=== PATIENT | female | born 1995 | race Caucasian/White ===

== ENCOUNTER 2016-05-23 16:03 | Emergency (ER) | payer OTHER ==
--- NOTE | 2016-05-23 19:44 | ED CLINICAL REPORT ---
Clinical Report - Physicians/Mid Levels [facility] [address] [place] [address] 05/23/2016 16:05 Patient: LAN LAMAR Time Seen: 18:00. Arrived- By private vehicle. Historian- patient. HISTORY OF PRESENT ILLNESS Chief Complaint: ABDOMINAL PAIN. It is described as located in the right lower quadrant. This started about 7 days ago, similar x 6 months and is still present (worse). It was gradual in onset and has been waxing/waning. At its maximum, severity described as moderate. When seen in the E.D., severity described as moderate. Modifying factors- worsened by walking, cough and deep breaths. (better with heat). The patient has had nausea. No vomiting or diarrhea. (IUD 6 mos). Similar symptoms previously: Several times. REVIEW OF SYSTEMS Last normal menstrual period- 4 weeks ago. Sexual history - sexually active. Uses an intrauterine device. No constipation, black stools, difficulty with urination, urinary frequency or fever. No headache, sore throat, blurred vision, chest pain or difficulty breathing. No joint pain, chills or back pain. The patient has had pain on urination. Last bowel movement: yesterday. 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 SOCIAL HISTORY The patient lives with spouse. ADDITIONAL NOTES The nursing notes have been reviewed. PHYSICAL EXAM Vital Signs: 05/23/2016 20:11 BP: 91/54. HR: 88. RR: 16. O2 saturation: 100%. Temp: 98.2 F. Pain level now: 07/01. 05/23/2016 18:58 BP: 93/68. HR: 70. RR: 16. O2 saturation: 97%. Temp: 97.7 F. 05/23/2016 17:21 BP: 121/67. HR: 83. RR: 18. O2 saturation: 100%. Temp: 98.4 F. Appearance: Alert. Patient in mild distress. Eyes: Pupils equal, round and reactive to light. ENT: Pharynx normal. Neck: Normal inspection. Neck supple. CVS: Normal heart rate and rhythm. Heart sounds normal. Respiratory: No respiratory distress. Breath sounds normal. Abdomen: Moderate tenderness in the right lower quadrant. Bowel sounds normal. No rebound tenderness or guarding. (No hernias). Back: No CVA tenderness. : No vaginal bleeding. Moderate right adnexal tenderness; uterine tenderness; left adnexal tenderness (IUD string in place). No right adnexal fullness. No left adnexal fullness. Uterus not enlarged. Skin: Skin warm. Normal skin color. Extremities: Extremities exhibit normal ROM. No lower extremity edema. LABS, X-RAYS, AND EKG Laboratory Tests: UA-Culture if indicated: (DENICE: 05/23/2016 17:25) ( [facility] [place]) Final results Test Result Flag Units (Reference) URINE COLOR YELLOW URINE APPEARANCE CLEAR URINE GLUCOSE NEGATIVE (NEGATIVE) URINE BILIRUBIN NEGATIVE (NEGATIVE) URINE KETONE TRACE (NEGATIVE) URINE SPECIFIC GRAVITY 1.020 (1.010-1.030) URINE PH 8.0 (5.0-8.0) URINE PROTEIN NEGATIVE (NEGATIVE) URINE UROBILINOGEN 0.2 EU/dL (0.2-1.0) URINE NITRITE NEGATIVE (NEGATIVE) URINE BLOOD TRACE-INTACT (NEGATIVE) URINE LEUK ESTERASE NEGATIVE (NEGATIVE) URINE RBC 0-1 rbc/hpf (0-1) URINE WBC 0-1 wbc/hpf (0-1) URINE EPITHELIAL CELLS 1-3 EPI/hpf (0-5) URINE BACTERIA TRACE (<1+) (NONE SEEN) URINE COMMENT CULT NOT INDICATED 1+ AMORPHOUSURINE CULTURES ARE SET-UP BASED ON THE FOLLOWING CRITERIA:POSITIVE NITRITEPOSITIVE LEUKOCYTE ESTERASEGREATER THAN 10 WHITE BLOOD CELLSMODERATE (2+) OR GREATER BACTERIA Urine: (DENICE: 05/23/2016 17:25) ( [facility] [place] 18:00) Final results Test Result Flag Units (Reference) URINE NEGATIVE CBC w Diff: (DENICE: 05/23/2016 18:00) ( MsgRcvd 05/23/2016 18:20) Final results Test Result Flag Units (Reference) WHITE BLOOD COUNT 7.2 K/uL (4.5-11.5) RED BLOOD COUNT 4.42 M/uL (4.00-5.20) HEMOGLOBIN 14.0 gm/dL (12.0-16.0) HEMATOCRIT 42.0 % (36.0-46.0) MEAN CELL VOLUME 95 fL (80-100) MEAN CORPUSCULAR HGB 32 pg (26-34) MEAN CORPUSCULAR HGB CONC 33 g/dL (31-37) RED CELL DISTRIBUTION WIDTH 12.3 % (11.6-14.8) PLATELET COUNT 173 K/uL (150-400) NEUTROPHIL % 78.5 H % (50-75) LYMPH % 10.9 L % (25-40) MONO % 9.4 % (3-14) EOSINOPHIL % 0.8 % (0-4) BASOPHIL % 0.4 % (0-2) CMP: (DENICE: 05/23/2016 18:00) ( MsgRcvd 05/23/2016 18:34) Final results Test Result Flag Units (Reference) GLUCOSE 90 mg/dL (70-110) BUN 12 mg/dL (7-18) CREATININE 0.8 mg/dL (0.6-1.3) Estimated GFR >60 mL/min Estimated GFR- >60 mL/min Note: Persistent reduction over 3 months in eGFR<60 mL/min/1.73 m2 defines CKD. Patients with eGFR values>=60 mL/min/1.73 m2 may also have CKD if evidence ofpersistent proteinuria. Additional information may be foundat www.kidney.org. SODIUM 140 mmol/L (136-145) POTASSIUM 4.1 mmol/L (3.5-5.1) CHLORIDE 105 mmol/L (98-107) CARBON DIOXIDE 31 mmol/L (21-32) CALCIUM 8.4 L mg/dL (8.5-10.1) TOTAL PROTEIN 7.0 g/dL (6.4-8.2) ALBUMIN 3.9 g/dL (3.3-5.0) BILIRUBIN, TOTAL 1.9 H mg/dL (0.0-1.0) ALKALINE PHOSPHATASE 70 U/L (46-116) AST (SGOT) 9 L U/L (15-37) ALT (SGPT) 24 U/L (12-78) . PROGRESS AND PROCEDURES Course of Care: Bimanual tenderness suggest the possibilty of PID will treat as such pending cultures. Does not look like appendicitis. Disposition: Discharged. Condition: stable. CLINICAL IMPRESSION Pelvic pain. Probable acute pelvic inflammatory disease. INSTRUCTIONS (THIS MAY BE A PELVIC INFECTION OR ENDOMITRIOSIS. YOU NEED TO SEE A FAMILY OR RELIGIOUS LEADER DR.). Prescription Medications: Hydrocodone/APAP 5mg / 325mg: take 1-2 orally every 4 hours as needed for pain. Dispense fifteen (15). Doxycycline 100 mg: Take 1 capsule orally every 12 hours for 10 days. No refill. Understanding of the discharge instructions verbalized by patient and family. Follow-up with: Steven Mora MD, Obstetrics/Gynecology, , [facility], [address] [place] [address] Follow up. Call for the next available appointment. Reason for referral: PELVIC PAIN FOLLOW UP. (Electronically signed by Feliciano Feliz MD 05/24/2016 19:46)
--- NOTE | 2016-05-23 19:44 | ED ORDER SUMMARY ---
..... Patient: LAN LAMAR OrderSheet [facility] VisitID: [id number] [place] [address] 20y, F Registration Date/Time: 05/23/2016 ORDER SHEET Weight: 47.6 kg (stated) Allergies: No Known Drug Allergy GENERAL ORDERS: UA-Culture if indicated Urgent (17:26 05/23/2016 SBalde R.N. per protocol) (Ack 17:28 IJurca ER Tech1) (18:06 SBalde R.N.) Urine Urgent (17:26 05/23/2016 SBalde R.N. per protocol) (Ack 17:28 IJurca ER Tech1) (18:06 SBalde R.N.) CBC w Diff Urgent (17:59 05/23/2016 Nikki COX) (Ack 18:03 IJurca ER Tech1) (18:16 MWinterer R.N.) CMP Urgent (17:59 05/23/2016 Nikki COX) (Ack 18:03 IJurca ER Tech1) (18:16 MWinterer R.N.) Pelvic Exam Setup (19:20 05/23/2016 Nikki COX) (19:40 HOShaughnessy R.N.) GC/Chlamydia (Cervix) (swab) Urgent (19:21 05/23/2016 Nikki COX) (Ack 19:29 LTapper) (19:40 HOShaughnessy R.N.) MEDICATION ORDERS: Percocet PO 1 tab (NOW) (19:40 05/23/2016 Nikki COX) (19:58 HOShaughnessy R.N.) IV FLUIDS: IV Saline Lock (17:59 05/23/2016 Nikki COX) (Ack 18:06 SBalde R.N.) (18:22 MWinterer R.N.) Ceftriaxone IV 250 mg/50mL (NOW) (19:39 05/23/2016 Nikki COX) (19:57 HOShaughnessy R.N.) ORDER SHEET NOTES: [Electronically signed by John Renteria R.N. (20:19 05/23/2016)] [Electronically signed by John Renteria R.N. (20:19 05/23/2016)] [Electronically signed by Feliciano Feliz MD (19:46 05/24/2016)] [Electronically locked/signed by John Renteria R.N. (20:19 05/23/2016)]
--- NOTE | 2016-05-23 19:44 | ED NURSING NOTES ---
Clinical Report - Nurses [facility] [address] [place] [address] 05/23/2016 16:05 Patient: LAN LAMAR TRIAGE Triage time 17:21 May 23 2016. Acuity: LEVEL 3. Chief Complaint: ABDOMINAL PAIN. Alert. No acute distress. --17:25 Lalita Mayorga R.N. 17:21 05/23/16. BP: 121/67. HR: 83. RR: 18. O2 saturation: 100%. Temp: 98.4 F. Pain level now 7/10. --17: Lalita Mayorga R.N. Weight: 47.6 kg stated. Height/Length: 62 inches Per Patient. BMI: 19.2. --17:21 Lalita Mayorga R.N. Medications None. --17: Lalita Mayorga R.N. Allergies No Known Drug Allergy. --17: Lalita Mayorga R.N. History Arrived by private vehicle. Historian: patient. Primary physician (none). ( Left Side Pain, started 1 week ago. Intermittent. Sharp.). Onset. (1 week). 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 PAST MEDICAL HX: Uses an intrauterine device. Denies current . Has not received seasonal influenza immunization. SOCIAL HX: Smoker- current status unknown (cigarette). Occasional alcohol use. History of drug use: marijuana. NUTRITIONAL RISK ASSESSMENT: The nutritional risk assessment revealed no deficiencies. FUNCTIONAL ASSESSMENT: Functional assessment: no impairments noted. LEARNING NEEDS ASSESSMENT: The learning needs assessment revealed no barriers. SKIN INTEGRITY ASSESSMENT: Skin integrity risk assessment completed. No skin integrity risk identified. --17:25 Lalita Mayorga R.N. PROBLEMS: UTI - Urinary Tract Infection. Dysfunctional Uterine Bleeding. Immunizations. LNMP - Last Normal Menstrual Period. --17:23 Lalita Mayorga R.N. Pelvic Inflammatory Disease [RuleOut]. --17:23 Lalita Mayorga R.N. Interventions ID band on patient. --17:25 Lalita Mayorga R.N. NURSING PROGRESS NOTES ( attempting a urine sample). --17:26 Lalita Mayorga R.N. Clean catch urine collected with return of yellow-colored clear urine; sample sent to lab for urinalysis and HCG. Specimen labeled in the presence of the patient. --17:29 Lalita Mayorga R.N. Patient ID band checked: patient confirmed. Blood samples drawn by nurse per protocol ; labeled in presence of the patient: rainbow set. ( Dr. Feliz has seen pt in the [facility]. Blood drawn by ELADIO Mancini and sent to lab. Pt has returned to the [facility].). --18:08 Lalita Mayorga R.N. 18:22 05/23/2016 Site #1 started via IV in the left antecubital space with an 20g angiocath, with aseptic technique and good blood return; one attempt. Saline lock flushed with 10 mL saline. --18:22 Audrey Ellis R.N. 18:58 05/23/16. BP: 93/68. HR: 70. RR: 16. O2 saturation: 97%. Temp: 97.7 F. --18:59 John Renteria R.N. The patient is calm. Overall patient status is the same- she states feels the same. --18:59 John Renteria R.N. 19:57 05/23/2016 Started 250 mg of Ceftriaxone IVPB; over 30 minute(s) via site #1 via IV pump. Allergies verified and confirmed 5 rights. IV patency established. IV site checked: no pain, redness, or swelling. IV flushed thoroughly pre- and post-medication administration. --19:57 John Renteria R.N. 19:58 05/23/2016 Percocet (Oxycodone-Acetaminophen) PO 5/325 mg Tablets 1 tab given. Allergies verified, confirmed 5 rights and sedative warning given to the patient. --19:58 John Renteria R.N. DISPOSITION / DISCHARGE Condition at departure: improved. The goals identified in the patient's plan of care were met. No learning barriers present. Discharge instructions provided and reviewed with the patient. Reviewed medication(s) side effects, precautions, dosing and course information. Prescription(s) given to the patient. Reviewed need for increased fluid intake. Work note given. Patient verbalized understanding. Written instructions provided in Ukrainian. The patient was discharged home and accompanied by spouse. She left the Emergency Department ambulatory and via private vehicle. Spouse driving. FALL RISK ASSESSMENT: Fall risk assessment completed. No fall risk identified. --20:12 John Renteria R.N. 20:11 05/23/16. BP: 91/54. HR: 88. RR: 16. O2 saturation: 100%. Temp: 98.2 F. Pain level now: 07/01. --20:12 John Renteria R.N. Departure time: 2017 PM. --20:19 John Renteria R.N. Locked/Released at 05/23/2016 20:19 by John Renteria R.N.
--- NOTE | 2016-05-23 19:44 | ED CLINICAL REPORT ---
Clinical Report - Physicians/Mid Levels [facility] [address] [place] [address] 05/23/2016 16:05 Patient: LAN LAMAR Time Seen: 18:00. Arrived- By private vehicle. Historian- patient. HISTORY OF PRESENT ILLNESS Chief Complaint: ABDOMINAL PAIN. It is described as located in the right lower quadrant. This started about 7 days ago, similar x 6 months and is still present (worse). It was gradual in onset and has been waxing/waning. At its maximum, severity described as moderate. When seen in the E.D., severity described as moderate. Modifying factors- worsened by walking, cough and deep breaths. (better with heat). The patient has had nausea. No vomiting or diarrhea. (IUD 6 mos). Similar symptoms previously: Several times. REVIEW OF SYSTEMS Last normal menstrual period- 4 weeks ago. Sexual history - sexually active. Uses an intrauterine device. No constipation, black stools, difficulty with urination, urinary frequency or fever. No headache, sore throat, blurred vision, chest pain or difficulty breathing. No joint pain, chills or back pain. The patient has had pain on urination. Last bowel movement: yesterday. 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 SOCIAL HISTORY The patient lives with spouse. ADDITIONAL NOTES The nursing notes have been reviewed. PHYSICAL EXAM Vital Signs: 05/23/2016 20:11 BP: 91/54. HR: 88. RR: 16. O2 saturation: 100%. Temp: 98.2 F. Pain level now: 07/01. 05/23/2016 18:58 BP: 93/68. HR: 70. RR: 16. O2 saturation: 97%. Temp: 97.7 F. 05/23/2016 17:21 BP: 121/67. HR: 83. RR: 18. O2 saturation: 100%. Temp: 98.4 F. Appearance: Alert. Patient in mild distress. Eyes: Pupils equal, round and reactive to light. ENT: Pharynx normal. Neck: Normal inspection. Neck supple. CVS: Normal heart rate and rhythm. Heart sounds normal. Respiratory: No respiratory distress. Breath sounds normal. Abdomen: Moderate tenderness in the right lower quadrant. Bowel sounds normal. No rebound tenderness or guarding. (No hernias). Back: No CVA tenderness. : No vaginal bleeding. Moderate right adnexal tenderness; uterine tenderness; left adnexal tenderness (IUD string in place). No right adnexal fullness. No left adnexal fullness. Uterus not enlarged. Skin: Skin warm. Normal skin color. Extremities: Extremities exhibit normal ROM. No lower extremity edema. LABS, X-RAYS, AND EKG Laboratory Tests: UA-Culture if indicated: (DENICE: 05/23/2016 17:25) ( [facility] [place] 18:08) Final results Test Result Flag Units (Reference) URINE COLOR YELLOW URINE APPEARANCE CLEAR URINE GLUCOSE NEGATIVE (NEGATIVE) URINE BILIRUBIN NEGATIVE (NEGATIVE) URINE KETONE TRACE (NEGATIVE) URINE SPECIFIC GRAVITY 1.020 (1.010-1.030) URINE PH 8.0 (5.0-8.0) URINE PROTEIN NEGATIVE (NEGATIVE) URINE UROBILINOGEN 0.2 EU/dL (0.2-1.0) URINE NITRITE NEGATIVE (NEGATIVE) URINE BLOOD TRACE-INTACT (NEGATIVE) URINE LEUK ESTERASE NEGATIVE (NEGATIVE) URINE RBC 0-1 rbc/hpf (0-1) URINE WBC 0-1 wbc/hpf (0-1) URINE EPITHELIAL CELLS 1-3 EPI/hpf (0-5) URINE BACTERIA TRACE (<1+) (NONE SEEN) URINE COMMENT CULT NOT INDICATED 1+ AMORPHOUSURINE CULTURES ARE SET-UP BASED ON THE FOLLOWING CRITERIA:POSITIVE NITRITEPOSITIVE LEUKOCYTE ESTERASEGREATER THAN 10 WHITE BLOOD CELLSMODERATE (2+) OR GREATER BACTERIA Urine: (DENICE: 05/23/2016 17:25) ( [facility] [place] 18:00) Final results Test Result Flag Units (Reference) URINE NEGATIVE CBC w Diff: (DENICE: 05/23/2016 18:00) ( MsgRcvd 05/23/2016 18:20) Final results Test Result Flag Units (Reference) WHITE BLOOD COUNT 7.2 K/uL (4.5-11.5) RED BLOOD COUNT 4.42 M/uL (4.00-5.20) HEMOGLOBIN 14.0 gm/dL (12.0-16.0) HEMATOCRIT 42.0 % (36.0-46.0) MEAN CELL VOLUME 95 fL (80-100) MEAN CORPUSCULAR HGB 32 pg (26-34) MEAN CORPUSCULAR HGB CONC 33 g/dL (31-37) RED CELL DISTRIBUTION WIDTH 12.3 % (11.6-14.8) PLATELET COUNT 173 K/uL (150-400) NEUTROPHIL % 78.5 H % (50-75) LYMPH % 10.9 L % (25-40) MONO % 9.4 % (3-14) EOSINOPHIL % 0.8 % (0-4) BASOPHIL % 0.4 % (0-2) CMP: (DENICE: 05/23/2016 18:00) ( MsgRcvd 05/23/2016 18:34) Final results Test Result Flag Units (Reference) GLUCOSE 90 mg/dL (70-110) BUN 12 mg/dL (7-18) CREATININE 0.8 mg/dL (0.6-1.3) Estimated GFR >60 mL/min Estimated GFR- >60 mL/min Note: Persistent reduction over 3 months in eGFR<60 mL/min/1.73 m2 defines CKD. Patients with eGFR values>=60 mL/min/1.73 m2 may also have CKD if evidence ofpersistent proteinuria. Additional information may be foundat www.kidney.org. SODIUM 140 mmol/L (136-145) POTASSIUM 4.1 mmol/L (3.5-5.1) CHLORIDE 105 mmol/L (98-107) CARBON DIOXIDE 31 mmol/L (21-32) CALCIUM 8.4 L mg/dL (8.5-10.1) TOTAL PROTEIN 7.0 g/dL (6.4-8.2) ALBUMIN 3.9 g/dL (3.3-5.0) BILIRUBIN, TOTAL 1.9 H mg/dL (0.0-1.0) ALKALINE PHOSPHATASE 70 U/L (46-116) AST (SGOT) 9 L U/L (15-37) ALT (SGPT) 24 U/L (12-78) . PROGRESS AND PROCEDURES Course of Care: Bimanual tenderness suggest the possibilty of PID will treat as such pending cultures. Does not look like appendicitis. Disposition: Discharged. Condition: stable. CLINICAL IMPRESSION Pelvic pain. Probable acute pelvic inflammatory disease. INSTRUCTIONS (THIS MAY BE A PELVIC INFECTION OR ENDOMITRIOSIS. YOU NEED TO SEE A FAMILY OR DOPSTER DR.). Prescription Medications: Hydrocodone/APAP 5mg / 325mg: take 1-2 orally every 4 hours as needed for pain. Dispense fifteen (15). Doxycycline 100 mg: Take 1 capsule orally every 12 hours for 10 days. No refill. Understanding of the discharge instructions verbalized by patient and family. Follow-up with: Steven Mora MD, Obstetrics/Gynecology, , [facility], [address] [place] [address] Follow up. Call for the next available appointment. Reason for referral: PELVIC PAIN FOLLOW UP. (Electronically signed by Feliciano Feliz MD 05/24/2016 19:46)
--- NOTE | 2016-05-23 19:44 | ED ORDER SUMMARY ---
..... Patient: LAN LAMAR OrderSheet [facility] VisitID: [id number] [place] [address] 20y, F Registration Date/Time: 05/23/2016 ORDER SHEET Weight: 47.6 kg (stated) Allergies: No Known Drug Allergy GENERAL ORDERS: UA-Culture if indicated Urgent (17:26 05/23/2016 SBalde R.N. per protocol) (Ack 17:28 IJurca ER Tech1) (18:06 SBalde R.N.) Urine Urgent (17:26 05/23/2016 SBalde R.N. per protocol) (Ack 17:28 IJurca ER Tech1) (18:06 SBalde R.N.) CBC w Diff Urgent (17:59 05/23/2016 Nikki COX) (Ack 18:03 IJurca ER Tech1) (18:16 MWinterer R.N.) CMP Urgent (17:59 05/23/2016 Nikki COX) (Ack 18:03 IJurca ER Tech1) (18:16 MWinterer R.N.) Pelvic Exam Setup (19:20 05/23/2016 Nikki COX) (19:40 HOShaughnessy R.N.) GC/Chlamydia (Cervix) (swab) Urgent (19:21 05/23/2016 Nikki COX) (Ack 19:29 LTapper) (19:40 HOShaughnessy R.N.) MEDICATION ORDERS: Percocet PO 1 tab (NOW) (19:40 05/23/2016 Nikki COX) (19:58 HOShaughnessy R.N.) IV FLUIDS: IV Saline Lock (17:59 05/23/2016 Nikki COX) (Ack 18:06 SBalde R.N.) (18:22 MWinterer R.N.) Ceftriaxone IV 250 mg/50mL (NOW) (19:39 05/23/2016 Nikki COX) (19:57 HOShaughnessy R.N.) ORDER SHEET NOTES: [Electronically signed by John Renteria R.N. (20:19 05/23/2016)] [Electronically signed by John Renteria R.N. (20:19 05/23/2016)] [Electronically signed by Feliciano Feliz MD (19:46 05/24/2016)] [Electronically locked/signed by John Renteria R.N. (20:19 05/23/2016)]
--- NOTE | 2016-05-23 19:44 | ED NURSING NOTES ---
Clinical Report - Nurses [facility] [address] [place] [address] 05/23/2016 16:05 Patient: LAN LAMAR TRIAGE Triage time 17:21 May 23 2016. Acuity: LEVEL 3. Chief Complaint: ABDOMINAL PAIN. Alert. No acute distress. --17:25 Lalita Mayorga R.N. 17:21 05/23/16. BP: 121/67. HR: 83. RR: 18. O2 saturation: 100%. Temp: 98.4 F. Pain level now 7/10. --17: Lalita Mayorga R.N. Weight: 47.6 kg stated. Height/Length: 62 inches Per Patient. BMI: 19.2. --17:21 Lalita Mayorga R.N. Medications None. --17: Lalita Mayorga R.N. Allergies No Known Drug Allergy. --17: Lalita Mayorga R.N. History Arrived by private vehicle. Historian: patient. Primary physician (none). ( Left Side Pain, started 1 week ago. Intermittent. Sharp.). Onset. (1 week). 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 PAST MEDICAL HX: Uses an intrauterine device. Denies current . Has not received seasonal influenza immunization. SOCIAL HX: Smoker- current status unknown (cigarette). Occasional alcohol use. History of drug use: marijuana. NUTRITIONAL RISK ASSESSMENT: The nutritional risk assessment revealed no deficiencies. FUNCTIONAL ASSESSMENT: Functional assessment: no impairments noted. LEARNING NEEDS ASSESSMENT: The learning needs assessment revealed no barriers. SKIN INTEGRITY ASSESSMENT: Skin integrity risk assessment completed. No skin integrity risk identified. --17:25 Lalita Mayorga R.N. PROBLEMS: UTI - Urinary Tract Infection. Dysfunctional Uterine Bleeding. Immunizations. LNMP - Last Normal Menstrual Period. --17:23 Lalita Mayorga R.N. Pelvic Inflammatory Disease [RuleOut]. --17:23 Lalita Mayorga R.N. Interventions ID band on patient. --17:25 Lalita Mayorga R.N. NURSING PROGRESS NOTES ( attempting a urine sample). --17:26 Lalita Mayorga R.N. Clean catch urine collected with return of yellow-colored clear urine; sample sent to lab for urinalysis and HCG. Specimen labeled in the presence of the patient. --17:29 Lalita Mayorga R.N. Patient ID band checked: patient confirmed. Blood samples drawn by nurse per protocol ; labeled in presence of the patient: rainbow set. ( Dr. Feliz has seen pt in the [facility]. Blood drawn by ELADIO Mancini and sent to lab. Pt has returned to the [facility].). --18:08 Lalita Mayorga R.N. 18:22 05/23/2016 Site #1 started via IV in the left antecubital space with an 20g angiocath, with aseptic technique and good blood return; one attempt. Saline lock flushed with 10 mL saline. --18:22 Audrey Ellis R.N. 18:58 05/23/16. BP: 93/68. HR: 70. RR: 16. O2 saturation: 97%. Temp: 97.7 F. --18:59 John Renteria R.N. The patient is calm. Overall patient status is the same- she states feels the same. --18:59 John Renteria R.N. 19:57 05/23/2016 Started 250 mg of Ceftriaxone IVPB; over 30 minute(s) via site #1 via IV pump. Allergies verified and confirmed 5 rights. IV patency established. IV site checked: no pain, redness, or swelling. IV flushed thoroughly pre- and post-medication administration. --19:57 John Renteria R.N. 19:58 05/23/2016 Percocet (Oxycodone-Acetaminophen) PO 5/325 mg Tablets 1 tab given. Allergies verified, confirmed 5 rights and sedative warning given to the patient. --19:58 John Renteria R.N. DISPOSITION / DISCHARGE Condition at departure: improved. The goals identified in the patient's plan of care were met. No learning barriers present. Discharge instructions provided and reviewed with the patient. Reviewed medication(s) side effects, precautions, dosing and course information. Prescription(s) given to the patient. Reviewed need for increased fluid intake. Work note given. Patient verbalized understanding. Written instructions provided in Rwandan. The patient was discharged home and accompanied by spouse. She left the Emergency Department ambulatory and via private vehicle. Spouse driving. FALL RISK ASSESSMENT: Fall risk assessment completed. No fall risk identified. --20:12 John Renteria R.N. 20:11 05/23/16. BP: 91/54. HR: 88. RR: 16. O2 saturation: 100%. Temp: 98.2 F. Pain level now: 07/01. --20:12 John Renteria R.N. Departure time: 2017 PM. --20:19 John Renteria R.N. Locked/Released at 05/23/2016 20:19 by John Renteria R.N.
--- NOTE | 2016-05-24 19:47 | ED MED RECONCILIATION SUMMARY ---
Patient: LAN LAMAR Medication Reconciliation Report [facility] VisitID: [id number] [address] [place] [address] 20y, F Registration Date/Time: 05/23/2016 Weight: 47.6 kg Height/Length: 62 in. BMI: 19.2 ALLERGIES: No Known Drug Allergy The patient's Home Medications are listed below: NONE. The source(s) of the original Home Medication information: Not obtained. The following Medications were given to the patient in the Emergency Department: Ceftriaxone [IVPB] IVPB bolus 0, then 250 mg, administered: 05/23/2016 7:57:00 PM Percocet [PO] PO 1 tab, administered: 05/23/2016 7:58:00 PM The following Medications were prescribed to the patient: Hydrocodone/APAP 5mg / 325mg: take 1-2 orally every 4 hours as needed for pain. Dispense fifteen (15). -- Feliciano Feliz MD Doxycycline 100 mg: Take 1 capsule orally every 12 hours for 10 days. No refill. -- Feliciano Feliz MD
--- NOTE | 2016-05-24 19:47 | ED MAR SUMMARY ---
..... Medication Administration Record [facility] [address] [place] [address] Patient: LAN LAMAR Visit ID: [id number] 20y, F Weight: 47.6 kg Height/Length: 62 in BMI: 19.2 ALLERGIES: No Known Drug Allergy Start 19:57 05/23/2016 John Renteria, RCynthiaNCynthia Medication Administered: CEFTRIAXONE [IVPB], Dose: 250 mg IVPB over 30 minute(s), Site: #1 left AC. Medication Ordered: Ceftriaxone IV 250 mg/50mL (NOW). Given 19:58 05/23/2016 John Renteria, RCynthiaNCynthia Medication Administered: PERCOCET [PO] (OXYCODONE-ACETAMINOPHEN), Dose: 1 tab 5/325 mg Tablets PO. Medication Ordered: Percocet PO 1 tab (NOW).
--- NOTE | 2016-05-24 19:47 | ED MAR SUMMARY ---
..... Medication Administration Record [facility] [address] [place] [address] Patient: LAN LAMAR Visit ID: [id number] 20y, F Weight: 47.6 kg Height/Length: 62 in BMI: 19.2 ALLERGIES: No Known Drug Allergy Start 19:57 05/23/2016 John Renteria, RCynthiaNCynthia Medication Administered: CEFTRIAXONE [IVPB], Dose: 250 mg IVPB over 30 minute(s), Site: #1 left AC. Medication Ordered: Ceftriaxone IV 250 mg/50mL (NOW). Given 19:58 05/23/2016 John Renteria, RCynthiaNCynthia Medication Administered: PERCOCET [PO] (OXYCODONE-ACETAMINOPHEN), Dose: 1 tab 5/325 mg Tablets PO. Medication Ordered: Percocet PO 1 tab (NOW).
--- NOTE | 2016-05-24 19:47 | ED DISCHARGE INSTRUCTIONS ---
Patient: LAN LAMAR General Instructions [facility] VisitID: [id number] [place] [address] 20y, F Registration Date/Time: 05/23/2016 Pelvic pain. Probable acute pelvic inflammatory disease. INSTRUCTIONS (THIS MAY BE A PELVIC INFECTION OR ENDOMITRIOSIS. YOU NEED TO SEE A FAMILY OR RESEARCH INVESTIGATOR DR.). Prescription Medications: Hydrocodone/APAP 5mg / 325mg: take 1-2 orally every 4 hours as needed for pain. Dispense fifteen (15). Doxycycline 100 mg: Take 1 capsule orally every 12 hours for 10 days. No refill. Understanding of the discharge instructions verbalized by patient and family. Follow-up with: Steven Mora MD, Obstetrics/Gynecology, , [facility], [address] [place] [address] Follow up. Call for the next available appointment. Reason for referral: PELVIC PAIN FOLLOW UP. ADDITIONAL INFORMATION Pelvic Inflammatory Disease Pelvic Inflammatory Disease (PID) is an infection of the female organs (uterus, ovary, or Fallopian tubes). This is most often the result of a sexually transmitted disease (STD). Sometimes, PID can be due to an overgrowth of normal bacteria and not caused by an STD. Whatever its cause, PID is a serious problem. It can lead to infertility (inability to become ) unless it is treated promptly. Home Care: Take all of the medicine prescribed, even if you start to feel better before taking all the pills. You may use acetaminophen (Tylenol) or ibuprofen (Motrin, Advil) to control pain, unless another pain medicine was prescribed. [NOTE: If you have chronic liver or kidney disease or ever had a stomach ulcer or GI bleeding, talk with your doctor before using these medicines.] Your sexual partner should contact his own doctor or go to the Public Health Department to be examined. If his test is positive or if he is having symptoms of discharge or burning when passing urine, he should be treated, too. Avoid sexual activity until both you and your partner have finished taking all of the antibiotic medicine, and your doctor has told you that you are cured. Learn about safe sex practices and use these in the future. The safest sex is with a partner who has tested negative and only has sex with you. Condoms offer protection from spreading some sexually transmitted diseases including Gonorrhea, Chlamydia and HIV, but are not a guarantee. Follow Up with your doctor or as advised by our staff. If a culture test was taken, you may call us in three days for the results, or as directed. Another culture test should be taken 4-6 weeks after treatment to be sure the infection has cleared. Follow up with your doctor or the Public Health Department for complete STD screening, including HIV testing. For more information about STD's, contact the National STD Hotline: . Get Prompt Medical Attention if any of the following occur: No improvement after three days of treatment New or increasing lower abdominal pain or back pain Unexpected vaginal bleeding Weakness, dizziness or fainting Repeated vomiting Inability to urinate due to pain Rash or joint pain Painful open sores around the outer vagina Enlarged painful lymph nodes (lumps) in the groin Pelvic Pain, Uncertain Cause Based on your visit today, the exact cause of your pelvic pain is not certain. But your condition does not appear to be serious at this time. However, the signs of a serious problem may take more time to appear. Therefore, it is important for you to watch for any new symptoms or worsening of your condition. Home Care: Rest until you are feeling better. Avoid sexual intercourse until your pain goes away. You may use acetaminophen (Tylenol) or ibuprofen (Motrin, Advil) to control pain, unless another medicine was prescribed. [NOTE: If you have chronic liver or kidney disease or ever had a stomach ulcer or GI bleeding, talk with your doctor before using these medicines.] Follow Up with your doctor as advised. If a culture test was taken, call in two days for the results. If the culture is positive, you will be given more advice at that time. Otherwise, follow-up with your doctor or this facility as instructed. Get Prompt Medical Attention if any of the following occur: Fever of 100.4F (38C) or higher, or as directed by your healthcare provider Vaginal discharge Worsening pain Weakness, dizziness or fainting Unexpected vaginal bleeding or passage of ball or white tissue from the vagina Pain that moves to the right lower abdomen You have been given the following additional information: Pelvic Inflammatory Disease Pelvic Pain, Unknown Cause (Electronically signed by Feliciano Feliz MD 05/24/2016 19:46)
--- NOTE | 2016-05-24 19:47 | ED MED RECONCILIATION SUMMARY ---
Patient: LAN LAMAR Medication Reconciliation Report [facility] VisitID: [id number] [address] [place] [address] 20y, F Registration Date/Time: 05/23/2016 Weight: 47.6 kg Height/Length: 62 in. BMI: 19.2 ALLERGIES: No Known Drug Allergy The patient's Home Medications are listed below: NONE. The source(s) of the original Home Medication information: Not obtained. The following Medications were given to the patient in the Emergency Department: Ceftriaxone [IVPB] IVPB bolus 0, then 250 mg, administered: 05/23/2016 7:57:00 PM Percocet [PO] PO 1 tab, administered: 05/23/2016 7:58:00 PM The following Medications were prescribed to the patient: Hydrocodone/APAP 5mg / 325mg: take 1-2 orally every 4 hours as needed for pain. Dispense fifteen (15). -- Feliciano Feliz MD Doxycycline 100 mg: Take 1 capsule orally every 12 hours for 10 days. No refill. -- Feliciano Feliz MD
--- NOTE | 2016-05-24 19:47 | ED DISCHARGE INSTRUCTIONS ---
Patient: LAN LAMAR General Instructions [facility] VisitID: [id number] [place] [address] 20y, F Registration Date/Time: 05/23/2016 Pelvic pain. Probable acute pelvic inflammatory disease. INSTRUCTIONS (THIS MAY BE A PELVIC INFECTION OR ENDOMITRIOSIS. YOU NEED TO SEE A FAMILY OR BINDERY LEADPERSON DR.). Prescription Medications: Hydrocodone/APAP 5mg / 325mg: take 1-2 orally every 4 hours as needed for pain. Dispense fifteen (15). Doxycycline 100 mg: Take 1 capsule orally every 12 hours for 10 days. No refill. Understanding of the discharge instructions verbalized by patient and family. Follow-up with: Steven Mora MD, Obstetrics/Gynecology, , [facility], [address] [place] [address] Follow up. Call for the next available appointment. Reason for referral: PELVIC PAIN FOLLOW UP. ADDITIONAL INFORMATION Pelvic Inflammatory Disease Pelvic Inflammatory Disease (PID) is an infection of the female organs (uterus, ovary, or Fallopian tubes). This is most often the result of a sexually transmitted disease (STD). Sometimes, PID can be due to an overgrowth of normal bacteria and not caused by an STD. Whatever its cause, PID is a serious problem. It can lead to infertility (inability to become ) unless it is treated promptly. Home Care: Take all of the medicine prescribed, even if you start to feel better before taking all the pills. You may use acetaminophen (Tylenol) or ibuprofen (Motrin, Advil) to control pain, unless another pain medicine was prescribed. [NOTE: If you have chronic liver or kidney disease or ever had a stomach ulcer or GI bleeding, talk with your doctor before using these medicines.] Your sexual partner should contact his own doctor or go to the Public Health Department to be examined. If his test is positive or if he is having symptoms of discharge or burning when passing urine, he should be treated, too. Avoid sexual activity until both you and your partner have finished taking all of the antibiotic medicine, and your doctor has told you that you are cured. Learn about safe sex practices and use these in the future. The safest sex is with a partner who has tested negative and only has sex with you. Condoms offer protection from spreading some sexually transmitted diseases including Gonorrhea, Chlamydia and HIV, but are not a guarantee. Follow Up with your doctor or as advised by our staff. If a culture test was taken, you may call us in three days for the results, or as directed. Another culture test should be taken 4-6 weeks after treatment to be sure the infection has cleared. Follow up with your doctor or the Public Health Department for complete STD screening, including HIV testing. For more information about STD's, contact the National STD Hotline: . Get Prompt Medical Attention if any of the following occur: No improvement after three days of treatment New or increasing lower abdominal pain or back pain Unexpected vaginal bleeding Weakness, dizziness or fainting Repeated vomiting Inability to urinate due to pain Rash or joint pain Painful open sores around the outer vagina Enlarged painful lymph nodes (lumps) in the groin Pelvic Pain, Uncertain Cause Based on your visit today, the exact cause of your pelvic pain is not certain. But your condition does not appear to be serious at this time. However, the signs of a serious problem may take more time to appear. Therefore, it is important for you to watch for any new symptoms or worsening of your condition. Home Care: Rest until you are feeling better. Avoid sexual intercourse until your pain goes away. You may use acetaminophen (Tylenol) or ibuprofen (Motrin, Advil) to control pain, unless another medicine was prescribed. [NOTE: If you have chronic liver or kidney disease or ever had a stomach ulcer or GI bleeding, talk with your doctor before using these medicines.] Follow Up with your doctor as advised. If a culture test was taken, call in two days for the results. If the culture is positive, you will be given more advice at that time. Otherwise, follow-up with your doctor or this facility as instructed. Get Prompt Medical Attention if any of the following occur: Fever of 100.4F (38C) or higher, or as directed by your healthcare provider Vaginal discharge Worsening pain Weakness, dizziness or fainting Unexpected vaginal bleeding or passage of ball or white tissue from the vagina Pain that moves to the right lower abdomen You have been given the following additional information: Pelvic Inflammatory Disease Pelvic Pain, Unknown Cause (Electronically signed by Feliciano Feliz MD 05/24/2016 19:46)
== END 2016-05-23 20:26 | disposition home or self-care (01) ==
LOC: ED SRH 16:03
DX: R10.2 Pelvic and perineal pain (principal); Z87.440 Personal history of urinary (tract) infections; Z87.42 Personal history of other diseases of the female genital tract
CPT/HCPCS: 90004; 90100; 91227; 91228; 93070; 95059